=== PATIENT | female | born 1980 | race Caucasian/White ===

== ENCOUNTER 2016-09-19 14:54 | Inpatient (IN) | payer OTHER ==
[~2016-09-19] VITALS: Ht 172.7 cm; Wt 123.0 kg
[2016-09-19 15:42] LABS: HEMATOCRIT 37.3 % (36.0-46.0); MCH 29.8 PG (29.0-34.0); MCHC 33.5 G/DL (30.0-36.0); MCV 88.8 FL (83-99); MEAN PLAT.VOLUME 10.3 uM^3 (9.5-12.4); PLATELET COUNT 261 K/uL (156-360); RBC DIS.WIDTH-CV 12.5 % (11.8-14.6); RBC DIS.WIDTH-SD 40.6 % (39-53); WHITE BLOOD COUNT 7.9 K/uL (4.1-10.2)
[2016-09-19 15:55] LABS: CHLORIDE 109 mEq/L (99-109); POTASSIUM 3.6 mEq/L (3.7-5.4); SODIUM 141 mEq/L (136-147)
[2016-09-19 15:57] LABS: GLUCOSE 196 mg/dL (70-99)
[2016-09-19 15:59] LABS: ANION GAP 9 MEQ/L (2-14)
[2016-09-19 16:02] LABS: GFR ESTIMATE (CALCULATED) > 59 mL/min/; UREA NITROGEN (BUN) 12 mg/dL (9-23)
[2016-09-19 16:03] LABS: TROP-I INTERPRETATION NEGATIVE; TROPONIN-I < 0.01 ng/mL (0.0-0.30)
[2016-09-19 17:03] LABS: TROP-I INTERPRETATION NEGATIVE; TROPONIN-I < 0.01 ng/mL (0.0-0.30)
[2016-09-19] MEDS ORDERED: VITAMIN D31000 UNIT PO (17:39)
[2016-09-19] MEDS ORDERED: METOPROLOL TART50 MG PO (17:39)
[2016-09-19] MEDS ORDERED: NOVOLOG PE100 UNITS/ SC (17:39)
[2016-09-19] MEDS ORDERED: FOLIC ACID1 MG PO (17:39)
[2016-09-19] MEDS ORDERED: PROAIR HFA8.5 GM IH (17:40)
[2016-09-19] MEDS ORDERED: LEVEMIR100 UNIT/2 SC (17:40)
[2016-09-19] MEDS ORDERED: LIPITOR40 MG PO (17:40)
[2016-09-19] MEDS ORDERED: LISINOPRIL2.5 MG PO (17:40)
[2016-09-19] MEDS ORDERED: BRILINTA90 MG PO (17:40)
[2016-09-19] MEDS ORDERED: FISH OIL 1,0001 EAC7 PO (17:40)
[2016-09-19] MEDS ORDERED: ISOSORBIDE MONO30 MG PO (17:40)
[2016-09-19] MEDS ORDERED: NITROSTAT0.4 MG SL (17:41)
[2016-09-19] MEDS ORDERED: LO-DOSE ASPIRIN81 M2 PO (17:41)
[2016-09-19 18:28] LABS: TOTAL BILIRUBIN 0.3 mg/dL (0.0-1.0)
[2016-09-19 18:29] LABS: ALKALINE PHOSPHATASE 76 IU/L (3-129)
[2016-09-19 18:31] LABS: DIRECT BILIRUBIN 0.1 mg/dL (0.0-0.3)
[2016-09-19 18:33] LABS: LIPASE 23 U/L (1.0-51.0)
[2016-09-19 18:35] LABS: D-DIMER ELISA 0.22 mg/L FEU (< 0.57)
[2016-09-19 19:46] VITALS: BP 136/67
[2016-09-19 22:12] LABS: POINT-OF-CARE METER ID UU14162513
[2016-09-19 23:30] LABS: TROP-I INTERPRETATION NEGATIVE; TROPONIN-I < 0.01 ng/mL (0.0-0.30)
[2016-09-20] VITALS (7 sets, daily range): BP systolic 92–130; BP diastolic 53–74
[2016-09-20 07:02] LABS: TROP-I INTERPRETATION NEGATIVE; TROPONIN-I < 0.01 ng/mL (0.0-0.30)
[2016-09-20 08:26] LABS: POINT-OF-CARE METER ID UU13113831
[2016-09-20 09:49] LABS: Estimated Average Glucose 194 mg/dL (70-123); HEMOGLOBIN A1c (GLYCOHEMOGLOB) 8.4 % HGB (Below 5.7)
[2016-09-20 13:17] LABS: POINT-OF-CARE METER ID UU13113831
[2016-09-20 17:43] LABS: POINT-OF-CARE METER ID UU13113700
[2016-09-20 21:27] LABS: POINT-OF-CARE METER ID UU13113831
[2016-09-21 04:00] VITALS: BP 113/56
[2016-09-21 07:45] VITALS: BP 145/72
[2016-09-21 08:05] LABS: POINT-OF-CARE METER ID UU13113831
[2016-09-21 12:18] LABS: POINT-OF-CARE METER ID UU13113819
[2016-09-21 15:40] VITALS: BP 122/68
[2016-09-21 21:00] LABS: POINT-OF-CARE METER ID UU14174216
[2016-09-21 21:49] VITALS: BP 102/63
[2016-09-22 00:33] VITALS: BP 108/60
[2016-09-22 03:49] VITALS: BP 94/48
[2016-09-22 08:32] VITALS: BP 111/72
[2016-09-22 09:29] LABS: ANION GAP 9 MEQ/L (2-14); CHLORIDE 105 MEQ/L (99-109); GFR ESTIMATE (CALCULATED) > 59 mL/min/; GLUCOSE 167 mg/dL (70-99); POTASSIUM 4.2 MEQ/L (3.7-5.4); SAMPLE HEMOLYSIS CHECK 0; SAMPLE ICTERIC CHECK 0; SAMPLE LIPEMIA CHECK 0; SODIUM 138 MEQ/L (136-147); UREA NITROGEN (BUN) 16 mg/dL (9-23)
== END 2016-09-22 10:37 | disposition short-term general hospital (02) | DRG 287 ==
LOC: EME 14:54 → EDOF 17:52 → 5WEST 17:52 → EDOF 17:52 → 5WEST 19:34 → 4EAST 09-21 15:21
PROVIDERS: Family Medicine; Hospitalist; Internal Medicine; Nurse Practitioner Family
DX: R07.9 Chest pain, unspecified (principal); I25.2 Old myocardial infarction; E78.5 Hyperlipidemia, unspecified; I10 Essential (primary) hypertension; E11.9 Type 2 diabetes mellitus without complications; E66.01 Morbid (severe) obesity due to excess calories; Z68.41 Body mass index [BMI] 40.0-44.9, adult; E11.65 Type 2 diabetes mellitus with hyperglycemia; Z95.5 Presence of coronary angioplasty implant and graft; Z79.4 Long term (current) use of insulin
CPT/HCPCS: 71020; 80048; 80076; 82948; 83036; 83690; 84484; 85027; 85347; 85379; 93005; 99202; 99281; 99285; C1769; C1887; G0378; J0153; J1200; J1644; J1815; J2250; J3010; J7040; J7050

== ENCOUNTER 2017-09-04 18:55 | Inpatient (IN) | payer OTHER ==
[~2017-09-04] VITALS: Ht 175.3 cm; Wt 123.4 kg
[~2017-09-04 18:55] MED LIST: BRILINTA90 MG PO; FISH OIL 1,0001 EAC7 PO; FOLIC ACID1 MG PO; ISOSORBIDE MONO30 MG PO; LEVEMIR100 UNIT/2 SC; LIPITOR40 MG PO; LISINOPRIL2.5 MG PO; LO-DOSE ASPIRIN81 M2 PO; METOPROLOL TART50 MG PO; NITROSTAT0.4 MG SL; NOVOLOG PE100 UNITS/ SC; PROAIR HFA8.5 GM IH; VITAMIN D31000 UNIT PO
[2017-09-04 19:24] LABS: HEMATOCRIT 38.9 % (36.0-46.0); HEMOGLOBIN 13.2 G/DL (11.9-15.5); MCH 30.5 PG (29.0-34.0); MCHC 33.9 G/DL (30.0-36.0); MCV 89.8 FL (83-99); PLATELET COUNT 261 K/uL (156-360); RBC DIS.WIDTH-CV 12.1 % (11.8-14.6); RED BLOOD COUNT 4.33 M/uL (3.80-5.20); WHITE BLOOD COUNT 8.8 K/uL (4.1-10.2)
[2017-09-04 19:31] LABS: CHLORIDE 107 mEq/L (99-109); POTASSIUM 3.8 mEq/L (3.7-5.4); SODIUM 140 mEq/L (136-147)
[2017-09-04 19:33] LABS: GLUCOSE 202 mg/dL (70-99)
[2017-09-04 19:37] LABS: CREATININE 1.1 mg/dL (0.6-1.3); GFR ESTIMATE (CALCULATED) > 59 mL/min/
[2017-09-04 19:38] LABS: UREA NITROGEN (BUN) 13 mg/dL (9-23)
[2017-09-04 19:43] LABS: TROP-I INTERPRETATION NEGATIVE; TROPONIN-I < 0.01 ng/mL (0.0-0.30)
[2017-09-04] MEDS ORDERED: VICTOZA0.6 MG/0.1 SC (22:48)
[2017-09-04 23:09] LABS: TROP-I INTERPRETATION NEGATIVE; TROPONIN-I < 0.01 ng/mL (0.0-0.30)
[2017-09-05 01:24] LABS: D-DIMER ELISA < 150.00 ng/mLDDU (<230)
[2017-09-05 02:26] VITALS: BP 131/92
[2017-09-05 04:25] VITALS: BP 124/65
[2017-09-05 05:37] LABS: TROP-I INTERPRETATION NEGATIVE; TROPONIN-I < 0.01 ng/mL (0.0-0.30)
[2017-09-05 09:00] VITALS: BP 134/77
[2017-09-05 10:21] LABS: HDL CHOLESTEROL 28 MG/DL (Desirable>=50); LDL CHOLESTEROL 54 mg/dL (Desirable<100); NON-HDL CHOLESTEROL 90 mg/dL (Desirable<160); TOTAL CHOLESTEROL 118 mg/dL (Desirable<200); TRIGLYCERIDES 182 MG/DL (Normal: <150)
[2017-09-05 12:30] VITALS: BP 130/85
[2017-09-05 12:48] LABS: TROP-I INTERPRETATION NEGATIVE; TROPONIN-I < 0.01 ng/mL (0.0-0.30)
[2017-09-05 16:51] VITALS: BP 123/76
[2017-09-05 20:19] VITALS: BP 136/80
[2017-09-06] VITALS (7 sets, daily range): BP systolic 119–167; BP diastolic 70–89
[2017-09-06 05:44] LABS: HEMATOCRIT 38.6 % (36.0-46.0); HEMOGLOBIN 12.9 G/DL (11.9-15.5); MCH 29.7 PG (29.0-34.0); MCHC 33.4 G/DL (30.0-36.0); MCV 88.7 FL (83-99); PLATELET COUNT 252 K/uL (156-360); RBC DIS.WIDTH-SD 39.8 % (39-53); RED BLOOD COUNT 4.35 M/uL (3.80-5.20)
[2017-09-06 06:10] LABS: CHLORIDE 105 MEQ/L (99-109); CREATININE 0.8 MG/DL (0.6-1.3); GFR ESTIMATE (CALCULATED) > 59 mL/min/; GLUCOSE 263 mg/dL (70-99); POTASSIUM 4.3 MEQ/L (3.7-5.4); SODIUM 139 MEQ/L (136-147); UREA NITROGEN (BUN) 15 mg/dL (9-23)
[2017-09-06] MEDS ORDERED: MOTRIN600 MG PO (15:22)
[2017-09-06] MEDS ORDERED: FAMOTIDINE20 MG PO (15:22)
== END 2017-09-06 17:00 | disposition home or self-care (01) | DRG 204 ==
LOC: EME 18:55 → 4EAST 23:39 → EDOF 23:39 → ENRESERV 23:40 → 4EAST 09-05 01:55
PROVIDERS: Emergency Medicine; Hospitalist; Internal Medicine Cardiovascular Disease
DX: R07.81 Pleurodynia (principal); M54.9 Dorsalgia, unspecified; M79.602 Pain in left arm; I25.10 Atherosclerotic heart disease of native coronary artery without angina pectoris; I10 Essential (primary) hypertension; E11.9 Type 2 diabetes mellitus without complications; E66.01 Morbid (severe) obesity due to excess calories; Z68.41 Body mass index [BMI] 40.0-44.9, adult; Z95.1 Presence of aortocoronary bypass graft; Z95.5 Presence of coronary angioplasty implant and graft; J45.909 Unspecified asthma, uncomplicated; E78.5 Hyperlipidemia, unspecified; I25.2 Old myocardial infarction; Z80.1 Family history of malignant neoplasm of trachea, bronchus and lung; Z82.49 Family history of ischemic heart disease and other diseases of the circulatory system; Z83.3 Family history of diabetes mellitus
CPT/HCPCS: 71046; 78452; 80048; 80061; 82948; 84484; 85027; 85379; 93005; 93017; 93306; 93970; 99281; 99285; A9500; J1650; J1815; J2785